=== PATIENT | female | born 1990 | race Caucasian/White ===

== ENCOUNTER 2019-06-04 06:38 | Inpatient (IN) | payer MEDICAID ==
[2019-06-04] MEDS ORDERED: RINGERS SOLUTION,LACTATED 300 ML IV ONE (06:50)
[2019-06-04] MEDS ORDERED: OXYTOCIN/NORMAL SALINE 20 UNIT/1,000 ML RTUINJ IV PRN ×2 (06:50→21:50)
--- NOTE | 2019-06-04 07:22 | Admission Physical ---
Datetime Report Generated by CPN: 06/04/2019 07:22 CURRENT ADMISSION Chief Complaint: Scheduled Induction of Labor Indication for Induction: Post Dates Admit Impression : Term, Intrauterine ; No Active Labor; Intact Membranes; Induction of Labor Admit Plan: Admit to Unit; Initiate Labor Induction Protocol ALLERGIES Medication Allergies: No Medication Allergies: No Known Allergies (06/04/2019) Latex: No Latex Allergies OBSTETRICAL HISTORY : 3 Para: 1 Term: 1 : 0 SAB: 0 IAB: 1 Ectopic: 0 Livin Cesareans: 0 VBACs: 0 Multiple Births: 0 PHYSICAL EXAM General: Normal HEENT: Normal Neurologic: Normal Thyroid: Deferred Heart: Normal Lungs: Normal Breast: Deferred Back: Normal Abdomen: Normal Genitourinary Exam: Normal Extremities: Normal DTRs: Normal Pelvic Type: Adequate Vital Signs: Reviewed VAGINAL EXAM Dilatation: 2 Effacement: 50 Station: -3 Contraction Comments: none MEMBRANES Membranes: Intact FETUS A Monitoring: External US FHR- Baseline: 125 Variability: Moderate 6-25bpm Accelerations: 15X15 Decelerations: None FHR Category: Category I Presentation: Vertex Admit Comment: 29yo at 41+2ega presents for scheduled IOL. 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 Rh negative - received Rhogam in . GBS negative. Admit for IOL with pitocin/AROM/possible cooks catheter. Anticipate . Pelvis proven to 8#3oz. PLANS FOR LABOR AND DELIVERY Labor and Delivery: None Pain Management: Epidural Benefit of Breast Feed Discussed: Yes Circumcision: No INFORMED CONSENT Informed Consent Obtained: Vaginal Delivery; Induction of Labor; Risks, Benefits and Alternatives Discussed Signature: with User ID: [email or web address]
[2019-06-04 08:08] LABS: ABSOLUTE LYMPHOCYTES (AUTO) 1.3 10^3/uL (0.5-4.7); ABSOLUTE MONOCYTES (AUTO) 0.5 10^3/uL (0.1-1.4); ABSOLUTE NEUT (AUTO) 5.7 10^3/uL (1.7-8.2); BASOPHILS % (AUTO) 0.4 % (0-2); EOSINOPHILS % (AUTO) 0.5 % (0-6); HEMATOCRIT 38.1 % (36.0-47.0); HEMOGLOBIN 12.8 g/dL (12.0-15.5); LYMPHOCYTES % (AUTO) 17.6 % (13-45); MEAN CORPUSCULAR HEMOGLOBIN 29.4 pg (27.0-33.4); MEAN CORPUSCULAR HGB CONC 33.7 g/dL (32.0-36.0); MEAN CORPUSCULAR VOLUME 87 fl (80-97); MONOCYTES % (AUTO) 6.5 % (3-13); PLATELET COUNT 157 10^3/uL (150-450); RED BLOOD COUNT 4.37 10^6/uL (3.72-5.28); RED CELL DISTRIBUTION WIDTH 14.3 % (11.5-14.0); TOTAL CELLS COUNTED % (AUTO) 100 %; WHITE BLOOD COUNT 7.6 10^3/uL (4.0-10.5)
[2019-06-04 08:11] LABS: APPEARANCE,URINE SLIGHTLY-CLOUDY; BILIRUBIN,URINE NEGATIVE (NEGATIVE); COLOR,URINE YELLOW; GLUCOSE, URINE NEGATIVE (NEGATIVE); KETONES,URINE NEGATIVE (NEGATIVE); LEUKOCYTE ESTERASE,URINE TRACE (NEGATIVE); NITRITE,URINE NEGATIVE (NEGATIVE); PROTEIN,URINE NEGATIVE (NEGATIVE); URINE SPECIFIC GRAVITY 1.015; UROBILINOGEN,URINE NEGATIVE mg/dL (<2.0)
[2019-06-04 08:37] LABS: URINE AMPHETAMINES SCREEN NEGATIVE; URINE BARBITURATES SCREEN NEGATIVE; URINE BENZODIAZEPINES SCREEN NEGATIVE; URINE COCAINE SCREEN NEGATIVE; URINE MARIJUANA (THC) SCREEN NEGATIVE; URINE METHADONE SCREEN NEGATIVE; URINE PHENCYCLIDINE SCREEN NEGATIVE
[2019-06-04] MEDS ORDERED: MISOPROSTOL 0.2 MG TABLET ONE (08:44)
[2019-06-04] MEDS ORDERED: OXYTOCIN 10 UNIT/ML VIAL ONE (08:44)
[2019-06-04] MEDS ORDERED: OXYTOCIN/NORMAL SALINE 20 UNIT/1,000 ML RTUINJ ONE (08:45)
[2019-06-04] MEDS ORDERED: LIDOCAINE 1% INJ-PF (10 MG/ML) 30 ML SDV ONE (08:45)
--- NOTE | 2019-06-04 10:26 | Warning Signs in Babies ---
VOD Warning Signs Datetime Report Generated by CPN: 06/04/2019 10:26 VOD#[id number] -Warning Signs in Babies: Viewed with Parent(s)/Family (06/04/2019 10:25:Loki Medel RN)
[2019-06-04] MEDS: RINGERS SOLUTION,LACTATED 1,000 ML IV PRN ×4 (10:33→17:18)
[2019-06-04] MEDS ORDERED: NALBUPHINE HCL INJ 10 MG/1 ML AMPULE IM ONE (12:00)
[2019-06-04] MEDS ORDERED: NALBUPHINE HCL INJ 10 MG/1 ML AMPULE ONE (12:03)
[2019-06-04] MEDS ORDERED: EPHEDRINE SULFATE INJ 50 MG/1 ML AMPULE ONE (13:33)
[2019-06-04] MEDS ORDERED: FENTANYL/BUPIVACAINE/NS/PF 300 MCG/150 ML RTUINJ EPI ONE (13:33)
[2019-06-04] MEDS ORDERED: BUPIVACAINE HCL 0.25 % INJ/PF (2.5 MG/1 ML) 30 ML VIAL ONE (13:34)
[2019-06-04] MEDS ORDERED: FAMOTIDINE INJ/PF 20 MG/2 ML SDV IV ONE ×2 (15:55→15:58)
[2019-06-04] MEDS ORDERED: ONDANSETRON HCL INJ/PF 4 MG/2 ML SDV IV ONE (19:16)
[2019-06-04] MEDS ORDERED: ONDANSETRON HCL INJ/PF 4 MG/2 ML SDV ONE (19:18)
[2019-06-04] MEDS ORDERED: DIPH/PERTUSS(ACELL)/TETANUS VAC/PF 0.5 ML SYR (>=10YO) IM PRN (21:50)
[2019-06-04] MEDS ORDERED: ACETAMINOPHEN WITH CODEINE #3 TABLET PO PRN (21:50)
[2019-06-04] MEDS ORDERED: ZOLPIDEM TARTRATE 5 MG TABLET PO PRN (21:50)
[2019-06-04] MEDS ORDERED: DIBUCAINE 1% OINTMENT 56 GM TP PRN (21:50)
[2019-06-04] MEDS ORDERED: BENZOCAINE/MENTHOL AEROSOL SPRAY 56 ML TOP PRN (21:50)
[2019-06-04] MEDS ORDERED: ACETAMINOPHEN WITH CODEINE #3 TABLET ONE (22:09)
[2019-06-04] MEDS ORDERED: IBUPROFEN 800 MG TABLET ONE (22:09)
[2019-06-04] MEDS: IBUPROFEN 800 MG TABLET PO SCH (22:16)
[2019-06-04] MEDS: ACETAMINOPHEN WITH CODEINE #3 TABLET PO PRN (22:16)
--- NOTE | 2019-06-04 22:56 | Delivery Summary ---
Del Sum A-C Datetime Report Generated by CPN: 06/04/2019 22:55 DELIVERY PERSONNEL DELIVERY PERSONNEL: [id number] Delivery Doctor:: Anna Marie Barnes MD Labor and Delivery Nurse:: Skye Lewis RN Labor and Delivery Nurse:: Franci Leon RN Hand Stamper/DROP WIRE ALIGNER: Vijaya Green, ST MATERNAL INFORMATION Delivery Anesthesia: Epidural Medications After Delivery: Pitocin Bolus-Please Comment; Pitocin Drip 20 Units/1000ml NSS Meds After Delivery Comment: Pitocin 20 units in 1000 Normal Saline Estimated Blood Loss (ml): 50 ml Maternal Complications: None Provider Comments: of a viable female at 2128 w/ an OA presentation; APGARS 8, 9; 1st degree right periurethral lac LABOR SUMMARY EDC: 05/26/2019 00:00 No. Babies in Womb: 1 Attempted: No Labor Anesthesia: Epidural LABOR INFORMATION Reason for Induction: Post Dates Onset of Labor: 06/04/2019 14:02 Complete Dilatation: 06/04/2019 20:50 Oxytocin: Augmentation Group B Beta Strep: negative Steroids Given: None Reason Steroids Not Administered: Not Applicable MEMBRANES Membranes Rupture Method: Artificial Rupture of Membranes: 06/04/2019 11:17 Length of Rupture (hr): 10.18 Amniotic Fluid Color: Clear Amniotic Fluid Amount: Small Amniotic Fluid Odor: Normal STAGES OF LABOR Stage 1 hr: 6 Stage 1 min: 48 Stage 2 hr: 0 Stage 2 min: 38 Stage 3 hr: 0 Stage 3 min: 8 Total Time in Labor hr: 7 Total Time in Labor min: 34 VAGINAL DELIVERY Episiotomy: None Laceration #1: Periurethral Laceration Extension #1: First Degree Laceration Repair: Yes Laceration Repair Note: Right periurethral lac repaired with 2-0 Chromic Sponge Count Correct: Yes Sharps Count Correct: Yes CSECTION DELIVERY Primary Indication: N/A Secondary Indication: N/A CSection Incidence: N/A Labor: N/A Elective: N/A CSection Incision: N/A BABY A INFORMATION Infant Delivery Date/Time: 06/04/2019 21:28 Method of Delivery: Vaginal Born in Route : No : N/A Forceps: N/A Vacuum Extraction: N/A Shoulder Dystocia : No PRESENTATION/POSITION BABY A Presentation: Cephalic Cephalic Presentation: Vertex Vertex Position: Right Occipital Anterior Breech Presentation: N/A PLACENTA INFORMATION BABY A Placenta Delivery Time : 06/04/2019 21:36 Placenta Method of Delivery: Spontaneous Placenta Status: Delivered SCORES BABY A Heart Rate 1 min: >100 bpm Resp Effort 1 min: Good Cry Reflex Irritability 1 min: Cough or Sneeze or Pulls Away Muscle Tone 1 min: Active Motion Color 1 min: Blue/Pale Resuscitation Effort 1 min: Tactile Stimulation SCORE 1 MIN: 8 Heart Rate 5 min: >100 bpm Resp Effort 5 min: Good Cry Reflex Irritability 5 min: Cough or Sneeze or Pulls Away Muscle Tone 5 min: Active Motion Color 5 min: Body [place], Extremities Blue SCORE 5 MIN: 9 INFANT INFORMATION BABY A Gestational Age at Delivery: 41.2 Gestational Status: Late Term- 41- 41.6 Weeks Outcome : Liveborn Infant Condition : Stable Sex: Female IDENTIFICATION BABY A Infant Verification Date/Time: 06/04/2019 21:44 ID Band Number: [id number] Mother's Name Verified: Yes RN Verifying : CSigrid Lewis, RN KSigrid Leon, RN WEIGHT/LENGTH BABY A Infant Birthweight (gm): 3942 Weight (lb): 8 Weight (oz): 11 Length (in): 20.50 Infant Length (cm): 52.07 CORD INFORMATION BABY A No. Cord Vessels: 3 Nuchal Cord : N/A Cord Blood Taken: Yes-For Eval (Mom's Blood Type - or O+) Suction: Mouth; Nose ASSESSMENT BABY A Skin to Skin: Yes Skin to Skin Time (min): 60 BABY B INFORMATION : N/A SIGNATURES Signature: with User ID: [email or web address] : I was personally available for consultation and serving as supervising physician for the P.
--- NOTE | 2019-06-05 00:29 | Delivery Summary ---
Del Sum A-C Datetime Report Generated by CPN: 06/05/2019 00:29 DELIVERY PERSONNEL DELIVERY PERSONNEL: [id number] Delivery Doctor:: Anna Marie Barnes MD Labor and Delivery Nurse:: Skye Lewis RN Labor and Delivery Nurse:: Franci Leon RN Key Account Manager/MARINE CONSULTANT: Vijaya Green, ST MATERNAL INFORMATION Delivery Anesthesia: Epidural Medications After Delivery: Pitocin Bolus-Please Comment; Pitocin Drip 20 Units/1000ml NSS Meds After Delivery Comment: Pitocin 20 units in 1000 Normal Saline Estimated Blood Loss (ml): 50 ml Delivery QBL: 50 Maternal Complications: None Provider Comments: of a viable female at 2128 w/ an OA presentation; APGARS 8, 9; 1st degree right periurethral lac LABOR SUMMARY EDC: 05/26/2019 00:00 No. Babies in Womb: 1 Attempted: No Labor Anesthesia: Epidural LABOR INFORMATION Reason for Induction: Post Dates Onset of Labor: 06/04/2019 14:02 Complete Dilatation: 06/04/2019 20:50 Oxytocin: Augmentation Group B Beta Strep: negative Steroids Given: None Reason Steroids Not Administered: Not Applicable MEMBRANES Membranes Rupture Method: Artificial Rupture of Membranes: 06/04/2019 11:17 Length of Rupture (hr): 10.18 Amniotic Fluid Color: Clear Amniotic Fluid Amount: Small Amniotic Fluid Odor: Normal STAGES OF LABOR Stage 1 hr: 6 Stage 1 min: 48 Stage 2 hr: 0 Stage 2 min: 38 Stage 3 hr: 0 Stage 3 min: 8 Total Time in Labor hr: 7 Total Time in Labor min: 34 VAGINAL DELIVERY Episiotomy: None Laceration #1: Periurethral Laceration Extension #1: First Degree Laceration Repair: Yes Laceration Repair Note: Right periurethral lac repaired with 2-0 Chromic Sponge Count Correct: Yes Sharps Count Correct: Yes CSECTION DELIVERY Primary Indication: N/A Secondary Indication: N/A CSection Incidence: N/A Labor: N/A Elective: N/A CSection Incision: N/A BABY A INFORMATION Delivery Date/Time: 06/04/2019 21:28 Method of Delivery: Vaginal Born in Route : No : N/A Forceps: N/A Vacuum Extraction: N/A Shoulder Dystocia : No PRESENTATION/POSITION BABY A Presentation: Cephalic Cephalic Presentation: Vertex Vertex Position: Right Occipital Anterior Breech Presentation: N/A PLACENTA INFORMATION BABY A Placenta Delivery Time : 06/04/2019 21:36 Placenta Method of Delivery: Spontaneous Placenta Status: Delivered SCORES BABY A Heart Rate 1 min: >100 bpm Resp Effort 1 min: Good Cry Reflex Irritability 1 min: Cough or Sneeze or Pulls Away Muscle Tone 1 min: Active Motion Color 1 min: Blue/Pale Resuscitation Effort 1 min: Tactile Stimulation SCORE 1 MIN: 8 Heart Rate 5 min: >100 bpm Resp Effort 5 min: Good Cry Reflex Irritability 5 min: Cough or Sneeze or Pulls Away Muscle Tone 5 min: Active Motion Color 5 min: Body [place], Extremities Blue SCORE 5 MIN: 9 INFORMATION BABY A Gestational Age at Delivery: 41.2 Gestational Status: Late Term- 41- 41.6 Weeks Outcome : Liveborn Condition : Stable Infant Sex: Female IDENTIFICATION BABY A Verification Date/Time: 06/04/2019 21:44 ID Band Number: [id number] Mother's Name Verified: Yes RN Verifying Infant: CSigrid Barretoilin, RN K. Edward, RN WEIGHT/LENGTH BABY A Birthweight (gm): 3942 Weight (lb): 8 Weight (oz): 11 Infant Length (in): 20.50 Length (cm): 52.07 CORD INFORMATION BABY A No. Cord Vessels: 3 Nuchal Cord : N/A Cord Blood Taken: Yes-For Eval (Mom's Blood Type - or O+) Suction: Mouth; Nose ASSESSMENT BABY A Skin to Skin: Yes Skin to Skin Time (min): 60 BABY B INFORMATION : N/A SIGNATURES Signature: with User ID: [email or web address] : I was personally available for consultation and serving as supervising physician for the P.
[2019-06-05] MEDS: IBUPROFEN 800 MG TABLET PO SCH ×3 (05:00→22:58)
[2019-06-05 07:47] LABS: HEMOGLOBIN 11.9 g/dL (12.0-15.5); MEAN CORPUSCULAR HEMOGLOBIN 29.7 pg (27.0-33.4); MEAN CORPUSCULAR VOLUME 87 fl (80-97); PLATELET COUNT 157 10^3/uL (150-450); RED CELL DISTRIBUTION WIDTH 14.6 % (11.5-14.0); WHITE BLOOD COUNT 14.7 10^3/uL (4.0-10.5)
--- NOTE | 2019-06-05 10:19 | PDOC PROGRESS REPORT ---
Subjective-OB Progress Note for:: 06/05/19 - PP Day #1, doing well, O neg, Rubella Immune, Physical Exam (OB) Vital Signs: Temp Pulse Resp BP Pulse Ox 98.1 F 87 16 107/54 L 98 06/05/19 08:19 06/05/19 08:19 06/05/19 08:19 06/05/19 08:19 06/05/19 08:19 Intake & Output 06/04/19 06/05/19 06/06/19 06:59 06:59 06:59 Intake Total 446 Balance 446 Weight 95.2 kg - General General Appearance: Appears well, Alert In distress: None - PIH/Pre-Eclampsia Clonus: Negative Headache: Absent Epigastric Pain: No Visual Changes: No - Lochia Lochia Amount: Scant < 10 ml - Abdomen Description: Tender Fundal Description: Firm, Midline Fundal Height: u/u - u/2 - Respiratory Respiratory Status: No respiratory distress - Abdominal Inspection: Normal Distension: No distension - Genitourinary Genitourinary Note: voiding - Extremities Upper extremity: Normal inspection Lower extremities: Normal inspection - Neurological Cognition: Normal Orientation: AAOx4 - Psychological Associated symptoms: Normal affect, Normal mood - Skin Skin Temperature: Warm Skin Moisture: Dry Objective-Diagnostic Laboratory: 06/05/19 06:50 06/05/19 06:50 WBC 14.7 H RBC 4.00 Hgb 11.9 L Hct 35.0 L MCV 87 MCH 29.7 MCHC 34.0 RDW 14.6 H Plt Count 157 Assessment and Plan(PN) - Assessment and Plan (1) Normal course Is this a current diagnosis for this admission?: Yes (2) Carrier of fragile X chromosome Is this a current diagnosis for this admission?: Yes (3) Post-term , 40-42 weeks of gestation Is this a current diagnosis for this admission?: Yes (4) Rh negative status during Qualifiers: Trimester: third trimester Qualified Code(s): O26.893 - Other specified related conditions, third trimester; Z67.91 - Unspecified blood type, Rh negative Is this a current diagnosis for this admission?: Yes - Time Spent with Patient Time with patient: Less than 15 minutes Medications reviewed and adjusted accordingly: Yes - Disposition Anticipated Discharge: Home Within: within 24 hours
[2019-06-05] MEDS: ACETAMINOPHEN WITH CODEINE #3 TABLET PO PRN ×2 (10:20→16:19)
[2019-06-05] MEDS: PRENATAL VITAMIN W DHA CAPSULE PO SCH (10:20)
[2019-06-05] MEDS: DOCUSATE SODIUM 100 MG CAPSULE PO SCH ×2 (10:21→18:51)
[2019-06-05] MEDS: FERROUS SULFATE 325 MG TABLET PO SCH ×2 (10:21→18:51)
[2019-06-05] MEDS: SENNOSIDES/DOCUSATE 8.6-50 MG 1 EACH TABLET PO SCH (10:21)
[2019-06-06] MEDS: IBUPROFEN 800 MG TABLET PO SCH ×2 (06:29→14:16)
[2019-06-06] MEDS: SENNOSIDES/DOCUSATE 8.6-50 MG 1 EACH TABLET PO SCH (11:01)
[2019-06-06] MEDS: DOCUSATE SODIUM 100 MG CAPSULE PO SCH (11:01)
[2019-06-06] MEDS: PRENATAL VITAMIN W DHA CAPSULE PO SCH (11:01)
[2019-06-06] MEDS: FERROUS SULFATE 325 MG TABLET PO SCH (11:01)
[2019-06-06] MEDS: ACETAMINOPHEN WITH CODEINE #3 TABLET PO PRN (11:08)
--- NOTE | 2019-06-06 11:38 | PDOC PROGRESS REPORT ---
Subjective-OB Progress Note for:: 06/06/19 Subjective: Ready for discharge. Physical Exam (OB) Vital Signs: Temp Pulse Resp BP Pulse Ox 97.5 F 69 16 111/67 100 06/06/19 07:36 06/06/19 07:36 06/06/19 07:36 06/06/19 07:36 06/06/19 07:36 Intake & Output 06/05/19 06/06/19 06/07/19 06:59 06:59 06:59 Intake Total 446 200 Output Total 575 Balance 446 -375 - PIH/Pre-Eclampsia DTR's: 2 + Clonus: Negative Headache: Absent Epigastric Pain: No Visual Changes: No - Lochia Lochia Amount: Scant < 10 ml Lochia Color: Rubra/Red - Abdomen Description: Soft, Round Hernia Present: No Bowel Sounds: Normoactive Flatus Presence: Present Stool: No Fundal Description: Firm, Midline Fundal Height: u/u - u/2 Objective-Diagnostic Laboratory: 06/05/19 06:50 Assessment and Plan(PN) - Time Spent with Patient Medications reviewed and adjusted accordingly: Yes - Disposition Anticipated Discharge: Home
--- NOTE | 2019-06-06 11:44 | PDOC DISCHARGE SUMMARY ---
Final Diagnosis Discharge Date: 06/06/19 - Final Diagnosis (1) Carrier of fragile X chromosome Is this a current diagnosis for this admission?: Yes (2) Delivery normal Is this a current diagnosis for this admission?: Yes (3) Normal course Is this a current diagnosis for this admission?: Yes (4) Post-term , 40-42 weeks of gestation Is this a current diagnosis for this admission?: Yes (5) Rh negative status during Is this a current diagnosis for this admission?: Yes Discharge Data - Discharge Medication Home Medications: Prenat 115/Iron Fum/Folic/Dss [ 19 Tablet] 1 tab PO DAILY 06/04/19 Gestational Age: 41.2 wks Reason(s) for Admission: Induction of Labor Procedures: Ultrasound Intrapartum Procedure(s): Spontaneous Vaginal Delivery Complication(s): Laceration-Periurethral Laceration-Degree: 1st - [place] Data Baby 1 Female at 1 minute: 8 at 5 minutes: 9 Weight: 3.941 kg Home with Mother: Yes Complications: No - Diagnosis Test Laboratory: Temp Pulse Resp BP Pulse Ox 97.5 F 69 16 111/67 100 06/06/19 07:36 06/06/19 07:36 06/06/19 07:36 06/06/19 07:36 06/06/19 07:36 06/04/19 06/04/19 06/05/19 06:50 07:32 06:50 RBC 4.37 4.00 Hgb 12.8 11.9 L Hct 38.1 35.0 L Urine Opiates Screen NEGATIVE - Discharge information/Instructions Discharge Activity: Activity As Tolerated, Balance Activity w/Rest, Pelvic Rest, Slowly Increase Activity, No tub bath Discharge Diet: Regular Disposition: HOME, SELF-CARE Follow up with: [facility] in: 4
[2019-06-06 15:30] VITALS: BP 111/57
== END 2019-06-06 15:39 | disposition home or self-care (01) | DRG 807 ==
LOC: LR 06:38 → 2S 06-05 00:15
PROVIDERS: ADMIT Student in an Organized Health Care Education/Training Program; ATTEND Obstetrics & Gynecology
PROC: 10E0XZZ Delivery of Products of Conception, External Approach (ICD-10-PCS; principal; 2019-06-04)
PROC: 0UQMXZZ Repair Vulva, External Approach (ICD-10-PCS; 2019-06-04)
PROC: 10907ZC Drainage of Amniotic Fluid, Therapeutic from Products of Conception, Via Natural or Artificial Opening (ICD-10-PCS; 2019-06-04)
DX: O48.0 Post-term pregnancy (principal); Z37.0 Single live birth; O26.893 Other specified pregnancy related conditions, third trimester; O71.82 Other specified trauma to perineum and vulva; Z3A.41 41 weeks gestation of pregnancy; Z14.8 Genetic carrier of other disease; Z67.91 Unspecified blood type, Rh negative
CPT/HCPCS: 36415; 59025; 80307; 81005; 85025; 85027; 86592; 86850; 86900; 86901; J2300; J2405; J2590; J3010; J3490; S0028